=== PATIENT | female | born 1980 | race Asian ===

== ENCOUNTER 2024-01-07 08:04 | Emergency (ER) | payer OTHER, SELFPAY ==
[2024-01-07 08:15] VITALS: BP 140/89
--- NOTE | 2024-01-07 09:30 | ED.GENMED ---
History of Present Illness
General
Chief Complaint: Fever
Source: patient
Exam Limitations: none
Time Seen by Provider: 01/07/24 09:18
Nursing documentation reviewed up to this point in time: agreed with
Travel History
Have you had any contact with someone who has COVID-19?: No
Do you have any symptoms of coronavirus? Fever > 100 degrees, chills, cough, shortness of breath, sore throat, loss of taste or smell, muscle aches, or headache?: Yes
Symptoms:: fever
History of Present Illness
History of Present Illness:
Patient is a 43-year-old female who presents to the ER for evaluation. Patient reports since Thursday, for the past 2 days she has had sore throat fever runny nose body aches upper back pain. She has been taking NyQuil DayQuil but continues to have
high fevers up to 102.6. Her son also had similar symptoms but is feeling better. She denies any shortness of breath. She despite the sore throat is able to eat and drink.
Review of Systems
Review of Systems
Allergies reviewed?: Yes
All Other Systems: ROS reviewed and negative except as documented in HPI and ROS
Constitutional: Reports fever and fatigue
EENT: Reports sore throat and runny nose
Respiratory: Reports cough; Denies trouble breathing
Cardiac: Reports no symptoms
ABD/GI: Reports no symptoms
: Reports no symptoms
Musculoskeletal: Reports other (Body aches)
Skin: Reports no symptoms; Denies rash
Neurological: Reports no symptoms
Hematologic/Lymphatic: Reports no symptoms
Psychiatric: Reports no symptoms
Phy Exam
General Physical Exam
General Presentation: well appearing
General age: appears stated age
General Skin: warm and dry
General Mental: alert
General Hydration: appears well hydrated
Cardiovascular Exam
Cardiovascular Exam: tachycardia
Pulmonary Exam
Pulmonary Exam: lungs clear and no respiratory distress
Neurological Exam
Neurological Exam: alert and oriented x3
Musculoskeletal Exam
Musculoskeletal Exam: full ROM
Skin Exam
Skin Exam: normal color and warm/dry
Psychiatric Exam
Psychiatric Exam: normal mood/affect
Course
Orders/Labs/Results
Orders:
Orders
01/07/24 09:29
Ibuprofen [Motrin] 600 mg PO NOW STA
01/07/24 09:31
Vital Signs- Treatment ONCE
Frequency: Once
01/07/24 09:34
Ibuprofen [Motrin] 600 mg .ROUTE .STK-MED ONE
01/07/24 09:38
COVID-19 Antigen Urgent
Source: Nasal Swab
Influenza A+B Rapid Molecular Urgent
[facility] Source: Nasal Swab
Specimen Description:
Rapid Strep Group A Urgent
[facility] Source: Throat/Pharynx
Specimen Description:
Date Specimen was Collected: 01/07/24
Time Specimen was Collected: 09:37
Vital Signs
Pulse: 98
Initial and Last Documented VS:
Initial Vital Signs
Temp Pulse Resp BP Pulse Ox
101.4 F H 137 18 140/89 97
01/07/24 08:15 01/07/24 08:15 01/07/24 08:15 01/07/24 08:15 01/07/24 08:15
Last Documented Vital Signs
Temp Pulse Resp BP Pulse Ox
101.4 F H 98 18 140/89 97
01/07/24 08:15 01/07/24 10:36 01/07/24 08:15 01/07/24 08:15 01/07/24 08:15
MDM/Problems Addressed
Differential Diagnosis Includes:
Not limited to COVID, influenza, viral syndrome, strep throat
MDM/Problems Addressed:
Patient has had sore throat runny nose cough muscle aches fever chills. Patient is positive for flu B here she is nontoxic. She is nontachypneic nonhypoxic here in the ER symptoms started 3 days ago.
Patient is 3 days into symptoms nontoxic no past medical history we will hold off on Tamiflu. Discussed supportive care.
*Pulse Oximetry
Patient hypoxic: no
*Critical Care Note
Total Time (30-74mins, 75-104mins- exclusive of procedures): Not Applicable
ED Attending Note
-
Portions of this chart may have been created with voice recognition software.� Occasional wrong word or��sound alike� substitutions may have occurred due to the inherent limitations of voice recognition software.
Discharge Plan
Departure
Patient Disposition: Home (Routine Discharge)
Date of Disposition: 01/07/24
Time of Disposition: 10:37
Patient with high blood pressure during this ER visit?: Yes
Condition: Fair
Covid-19: Not Applicable
Discharge Problem:
Influenza
Instructions: Flu, Adult (DC)
Referrals:
NONE,* [Family Provider] -
Activity Restrictions/Additional Instructions:
As discussed be sure to get plenty rest drink plenty of fluids. Take ibuprofen 400 to 600 mg every 8 hours for fever chills body aches. In the alternate and take Tylenol, acetaminophen every 4-6 hours. Follow-up with your family doctor the next
several days return if any worsening of symptoms.
Interventions
Interventions:
*Risk Screen - Suicide Last Done: 01/07/24 08:15
*General Assessment Last Done: 01/07/24 08:15
*Neglect/Abuse Screening Last Done: 01/07/24 08:15
Discharge Date and Time
Print Language: YAKUT
[2024-01-07] MEDS: MOTRIN 600 MG PO (09:36)
[2024-01-07 10:29] LABS: COVID-19 Antigen Negative (Negative)
== END 2024-01-07 10:53 | disposition home or self-care (01) ==
LOC: EMR 08:04
PROVIDERS: Nurse Practitioner; EMERGENCY PHYSICIAN Student in an Organized Health Care Education/Training Program
DX: J10.1 Influenza due to other identified influenza virus with other respiratory manifestations (principal); R03.0 Elevated blood-pressure reading, without diagnosis of hypertension; Z11.52 Encounter for screening for COVID-19
CPT/HCPCS: 99283; 87070; 87147; 87502; 87811; 87880